=== PATIENT | female | born 1940 | race Caucasian/White ===

== ENCOUNTER 2020-10-02 09:49 | Outpatient (RCR) | payer MEDICARE, SELFPAY ==
[2016-11-09 17:21] VITALS: BMI 18.4
== END 2020-10-02 23:59 ==
LOC: IMMUN 09:49
PROVIDERS: PCP Orthopaedic Surgery; Visit Provider Family Medicine
DX: Z23 Encounter for immunization (principal)
CPT/HCPCS: 0011A; 0012A

== ENCOUNTER 2022-03-18 17:34 | Observation (INO) | payer MEDICARE, SELFPAY ==
[2022-03-18] VITALS (8 sets, daily range): BP systolic 110–179; BP diastolic 84–100; PULSE 68–87; RESP 16–19; TEMP 36.6–37.1; O2SAT 95–99; BMI 18.8; BMI 14.8
--- NOTE | 2022-03-18 17:39 | ED.RN ---
NO STROKE TEAM CALLED PER
--- NOTE | 2022-03-18 18:13 | CT_ITS ---
INDICATION: paresthesias/weakness. Complaints of RIGHT arm and hand numbness. RIGHT leg feels sluggish. EXAMINATION: CTA HEAD - CTA Head and Neck W/ Contrast Injection (and W/O Contrast Images if performed) TECHNIQUE: [place]/head CT angiogram and CTA examination of the neck was performed following IV contrast. 3D reconstructions were reviewed. A radiation dose optimization technique was used for this scan. Additional precontrast imaging of the head obtained. IV Contrast dosage and agent: 100 mL Isovue-370 Radiation Dose (provided by facility) CTDIvol (24.3 ) mGy, DLP ( 1186.57) mGy-cm COMPARISON: None. FINDINGS: CT HEAD: 1. The cerebral parenchyma, ventricular system and gyral pattern have normal configuration. Minimal involutional changes. Mild chronic microvascular deep white matter disease is noted. 2. There is focal area of diminished density in in the LEFT thalamus of indeterminate age however no hemorrhage noted. 3. Normal blackwell-white differentiation throughout the hemispheric parenchyma. No mass, hemorrhage, or acute territorial infarct identified. 4. Cerebellum, brainstem, basilar and suprasellar cisterns have normal appearance. No Chiari malformation. 5. Scattered vascular calcifications without evidence of hyperdense vascular signs. 6. Orbits, paranasal sinuses have normal appearance. 7. Bony elements have normal appearance. CTA [place]: PETROUS AND CAVERNOUS CAROTID ARTERIES: Scattered vascular calcifications involving the cavernous carotid vessels bilaterally. No filling defects or occlusion. No aneurysmal dilatation. SUPRACLINOID CAROTID ARTERIES: Normal appearance the supraclinoid carotid vessels bilaterally, the visualized ophthalmic arteries have normal appearance. ANTERIOR CEREBRAL AND A- COMM: Normal appearance the proximal and distal segments of the anterior cerebral circulation bilaterally. MIDDLE CEREBRAL ARTERIES: Normal appearance the proximal and distal segments of the middle cerebral circulation bilaterally. Normal appearance of the M4 cortical distribution bilaterally. INTRACRANIAL VERTEBRAL ARTERIES AND BASILAR ARTERY: Normal appearance of the intracranial course of the vertebral arteries bilaterally, normal appearance of basilar artery to the level of the bifurcation. Dominant LEFT vertebral artery is noted. POSTERIOR CEREBRAL ARTERIES: Normal appearance proximal distal segments of posterior cerebral circulation bilaterally. origin of the RIGHT posterior cerebral artery. Developmentally atresia RIGHT P1. DURAL SINUSES: Normal, no filling defects noted CTA Neck: TECHNIQUE: CTA examination of the neck obtained with standard protocol including axial postcontrast imaging with additional planar and three-dimensional reconstructions. Aortic arch: [Normal appearance of the aortic arch and origin the great vessels.] Scattered vascular calcifications are present. Right carotid system: There is normal appearance RIGHT common carotid, RIGHT internal carotid arteries, and the bifurcation. Normal appearance of the external carotid circulation on the RIGHT. Minimal calcification RIGHT carotid bulb without stenosis occlusion or luminal irregularity. Left carotid system: There is normal appearance of the LEFT common carotid, LEFT internal carotid, and the bifurcation. There is normal appearance of the LEFT external carotid circulation minimal calcification at the LEFT carotid bulb. Vertebral arteries: There is normal appearance of the vertebral arteries bilaterally without focal stenosis or occlusion. Dominant LEFT vertebral artery is noted. Airway and soft tissues of the neck: There is normal appearance of the musculofascial planes of suprahyoid and infrahyoid neck. Normal appearance of the visualized airway. Normal appearance the visualized thyroid without masses or nodules noted. Cervical spine: Normal appearance of bony elements of the cervical spine. No focal stenosis or occlusion involving the cervical spinal canal. CHEST: Significant pleural-parenchymal scar at the lung apices. Mild subpleural cystic changes are also noted. There is a soft tissue nodule at the RIGHT lung apex (series 4: Image 91), measuring approximately 5.[address]/CTA Head AND Neck W/ Contrast IMPRESSION: 1. Mild involutional change, moderate chronic microvascular deep white matter disease noted. 2. Subtle area of diminished density in the LEFT thalamus consistent with an area of lacunar infarct of indeterminate age. This may represent a subacute to chronic nonhemorrhagic infarct. 3. No other evidence mass, hemorrhage, or acute territorial infarct. 4. CTA examination of the [place] documents scattered calcifications in the cavernous carotid vessels without stenosis occlusion or aneurysmal dilatation. No intracranial LVO noted. 5. Scattered calcifications at the carotid bulbs bilaterally without hemodynamic significant stenosis in the cervical carotid or vertebral circulation to the level of the skull base. 6. Extensive chronic appearing pleural-parenchymal scar and thickening at the lung apices however mildly angulated pulmonary nodule versus scar present in the RIGHT upper lobe. In the absence previous imaging for comparison, consider follow-up CT evaluation of the chest to define the full extent of pulmonary disease, and a follow-up as per the included pulmonary nodule recommendations. Reference recommendations for pulmonary nodule follow-up: Fleischner Report Guidelines 2017 Lamar et al, Radiology 2017: https://pubs.rsna.org/doi/pdf/10.1148/radiol.4241305781 Solitary nodule size: <6 mm low-risk patients: no follow-up needed high-risk patients: optional CT at 12 months (see specific scenarios below) Solitary nodule size: 6-8 mm low-risk patients: follow-up at 6-12 months, then consider further follow-up at 18-24 months high-risk patients: initial follow-up CT at 6-12 months and then at 18-24 months if no change Solitary nodule size: >8 mm either low or high-risk patients consider follow-up CT at 3 months, and/or CT-PET, and/or biopsy Electronically Signed: Miky Marquez MD at 20:25 EDT ,
--- NOTE | 2022-03-18 18:14 | EKG12_ITS ---
Test Reason : DYSRHYTHMIA Blood Pressure : / mmHG Vent. Rate : 075 BPM Atrial Rate : 075 BPM P-R Int : 166 ms QRS Dur : 084 ms QT Int : 390 ms P-R-T Axes : 059 032 045 degrees QTc Int : 435 ms Normal sinus rhythm Normal ECG Confirmed by JEFF JUAN, JEREMY ([id number]), newspaper editor managing JAH GOSS ([id number]) on 03/20/2022 9:45:17 AM Referred By: BB Confirmed By:JEREMY AGUILAR MD
--- NOTE | 2022-03-18 18:15 | EDS_ITS ---
HPI History of Present Illness Chief Complaint: Numb/Ting Informant: patient Onset/Context/Timing Onset: Days Current Severity: Mild Maximum Severity: Mild Narrative Narrative: Patient presents secondary to numbness and tingling in her right upper extremity and feeling that her right leg has been sluggish. Symptoms started several days ago. The upper and lower extremity symptoms seemed to start at the same time. She states she still able to ambulate without difficulty. She thought that her right upper extremity numbness and tingling was secondary to carpal tunnel, however she states it goes up the entire length of her arm. She denies history of stroke or TIA in the past. [facility] Medical History (Updated 03/18/22 @ 21:[address] Deborah Lagunas MD) Hypercholesteremia Home Medications sertraline 50 mg tablet 25 mg PO DAILY 11/09/16 [History Last Taken Unknown] Allergy/AdvReac Type Severity Reaction Status Date / Time No Known Allergies Allergy Verified 03/18/22 17:37 Social History Smoking Status: Former smoker ROS ROS ED Constitutional Constitutional ED: Denies chills or fever(s) Eyes Eyes: Denies change in vision or discharge from eye(s) ENT ENT ED: Denies discharge from eye(s), rhinorrhea or sore throat Cardiovascular Cardiovascular: Denies chest pain or palpitations Respiratory/Chest Respiratory/Chest: Denies cough or dyspnea Gastrointestinal Gastrointestinal: Denies abdominal pain, diarrhea, nausea or vomiting Genitourinary Genitourinary ED: Denies difficulty urinating or dysuria Musculoskeletal Musculoskeletal: Denies back pain or extremity pain Integumentary Denies Abrasions or rash Neurologic Neurologic: Reports paresthesias and weakness; Denies headache(s) Psychiatric Psychiatric: Denies anxiety or depression Allergic/Immunologic Allergic/Immunologic ED: Denies lip swelling or urticaria EXAM Physical Exam Const Vital Signs: 03/18/22 17:35 03/18/22 18:04 Temperature 97.8 F Temperature Source Temporal Pulse Rate 84 76 Respiratory Rate 16 19 H Blood Pressure 110/100 H 150/88 H Blood Pressure Mean 103 108 Pulse Ox 96 98 Oxygen Delivery Method Room Air Room Air Positive well nourished and well developed General Appearance ED: well developed HEENT Reports normocephalic and head/scalp atraumatic Eyes PERRL and EOMs intact bilaterally Neck supple Chest Wall inspection of chest normal and palpation of chest normal Resp normal respiratory effort and clear to auscultation bilaterally Cardio regular rate and regular rhythm GI normal to inspection, nondistended, normoactive bowel sounds Palpation: soft Back/Spine no CVA tenderness Extremity normal to inspection Neuro oriented x3 and no sensory deficits noted Neuro Narrative: NIH equals 0 at the time of my exam. Sensorium / Orientation: alert Motor Exam: strength 5/5 throughout Psych mental status grossly normal Skin no rashes or lesions noted MDM MDM MDM Narrative Medical decision making narrative: With patient having both right upper and lower extremity symptoms stroke work-up is initiated. EKG, lab work, CTA of the head and neck obtained. Onset of symptoms was couple days ago and therefore not a candidate for tPA or stroke alert. Lab Data Attestation: I reviewed the patient's lab results. Labs: Laboratory Results - last 24 hr 03/18/22 03/18/22 17:45 17:45 WBC 6.4 RBC 4.41 Hgb 13.6 Hct 42.1 MCV 95.5 MCH 30.8 MCHC 32.3 RDW Std Deviation 46.3 H RDW Coeff of [place] 13.2 Plt Count 344 MPV 10.4 Immature Gran % (Auto) 0.200 Neut % (Auto) 69.8 Lymph % (Auto) 17.2 L [place] % (Auto) 6.1 Eos % (Auto) 5.6 H Baso % (Auto) 1.1 H Absolute Neuts (auto) 4.5 Absolute Lymphs (auto) 1.10 Nucleated RBC % 0 Sodium 139 Potassium 4.1 Chloride 107 Carbon Dioxide 27.0 Anion Gap 5 BUN 25 H Creatinine 0.94 Estim Creat Clear Calc 37.99 Est GFR (MDRD) Af Amer 73 Est GFR (MDRD) Non-Af 60 BUN/Creatinine Ratio 26.6 H Glucose 128 H Calcium 9.5 Radiography Diagnostic Testing: Clinical Impression(s) from Imaging Studies Head/Neck CTA 03/18/22 18:13 IMPRESSION: 1. Mild involutional change, moderate chronic microvascular deep white matter disease noted. 2. Subtle area of diminished density in the LEFT thalamus consistent with an area of lacunar infarct of indeterminate age. This may represent a subacute to chronic nonhemorrhagic infarct. 3. No other evidence mass, hemorrhage, or acute territorial infarct. 4. CTA examination of the [place] documents scattered calcifications in the cavernous carotid vessels without stenosis occlusion or aneurysmal dilatation. No intracranial LVO noted. 5. Scattered calcifications at the carotid bulbs bilaterally without hemodynamic significant stenosis in the cervical carotid or vertebral circulation to the level of the skull base. 6. Extensive chronic appearing pleural-parenchymal scar and thickening at the lung apices however mildly angulated pulmonary nodule versus scar present in the RIGHT upper lobe. In the absence previous imaging for comparison, consider follow-up CT evaluation of the chest to define the full extent of pulmonary disease, and a follow-up as per the included pulmonary nodule recommendations. Reference recommendations for pulmonary nodule follow-up: Fleischner Report Guidelines 2017 MacAniahopedro et al, Radiology 2017: https://pubs.rsna.org/doi/pdf/10.1148/radiol.1139297795 Solitary nodule size: <6 mm low-risk patients: no follow-up needed high-risk patients: optional CT at 12 months (see specific scenarios below) Solitary nodule size: 6-8 mm low-risk patients: follow-up at 6-12 months, then consider further follow-up at 18-24 months high-risk patients: initial follow-up CT at 6-12 months and then at 18-24 months if no change Solitary nodule size: >8 mm either low or high-risk patients consider follow-up CT at 3 months, and/or CT-PET, and/or biopsy Electronically Signed: Miyk Marquez MD at 20:25 EDT , EKG Initial EKG: Attestation: I personally reviewed and interpreted this EKG as follows: Interpretation: Sinus Rhythm (Sinus at 75 with no acute ischemia.) Treatment and Re-Evaluation Narrative: Lab work is unremarkable. EKG reveals no acute ischemia. CTA of the head and neck reveals an area of diminished density in the left thalamus consistent with an area of lacunar infarct of indeterminate age. This may represent a subacute or chronic nonhemorrhagic infarct. With patient having left-sided findings on her CT and right arm and leg symptoms I am concerned that this is a subacute injury. I feel patient should be admitted for the remainder of the stroke work- up. I will speak with the hospitalist. Discharge Plan Triage Chief Complaint: Numb/Ting ED Provider: Deborah Lagunas Dx/Rx/DC Orders Clinical Impression: CVA (cerebral vascular accident) Prescriptions: No Action sertraline 50 MG tablet 25 mg PO DAILY Primary Care Provider: Reggie Linton Referrals: Reggie Linton MD [Primary Care Provider] - Disposition Disposition: Acute Care Hospital [facility]
[2022-03-18 18:28] LABS: Absolute Neutrophil Count 4.5 X10^3/uL (2.0-7.7); Basophil# 0.07 X10^3/uL; Basophil% 1.1 % (0-1); Eosinophil# 0.36 X10^3/uL; Eosinophils% 5.6 % (0-5); Hematocrit 42.1 % (37-47); Hemoglobin 13.6 g/dL (12.0-15.0); Lymphocyte % 17.2 % (19-41); Mean Corp Hgb Conc 32.3 g/dL (32-36); Mean Corpuscular Hgb 30.8 pg (27.0-32.0); Mean Corpuscular Volume 95.5 fL (81-99); Mean Platelet Vol. 10.4 fl (6.2-12.0); Monocyte# 0.39 X10^3/uL; Monocyte% 6.1 % (0-10); NRBC Flagged by Analyzer 0 % (0-5); Neutrophil # 4.45 X10^3/uL (2.7-7.7); Neutrophil % 69.8 % (47-70); Platelet Count 344 K/mm3 (150-450); RBC Distribution Width CV 13.2 % (11.6-14.6); RBC Distribution Width SD 46.3 fl (35.1-43.9); Red Blood Count 4.41 M/mm3 (4.2-5.4); White Blood Count 6.4 K/mm3 (4.4-11.0)
[2022-03-18 18:54] LABS: Anion Gap 5 (5-15); BUN 25 mg/dL (7-18); BUN/Creat Ratio 26.6 RATIO (10-20); Calcium,Total 9.5 mg/dL (8.5-10.1); Chloride 107 mmol/L (98-107); Creatinine, Serum 0.94 mg/dL (0.55-1.02); EST Glomerular Filtration Rate 60 mL/min (>60); Est Glom Filt Rate - Afr Amer 73 mL/min (>60); Estimated Creatinine Clearance 37.99 ml/min; Glucose 128 mg/dL (74-106); Potassium 4.1 mmol/L (3.5-5.1); Sodium Level 139 mmol/L (136-145)
[2022-03-18] MEDS: hydrALAZINE 20 MG/ML Vial 5 MG IV (22:09)
--- NOTE | 2022-03-18 22:14 | PCM.HP.STD ---
HPI - General General Date of Admission: 03/18/22 Date of Service: 03/18/22 Chief Complaint: stroke-like symptoms HPI Narrative SHANELLE THURSTON, is a 81 F with a significant history of depression/anxiety; and hypercholesteremia who presents to the emergency department with numbness of her right forearm and her right hand. Also she had weakness of her right hand. Associated with her symptoms is malaise. Her symptoms started a couple of days ago. At least she thinks her symptoms started a day before presentation. Her symptoms has improved. [facility] Medical History Hypercholesteremia Home Medications sertraline 50 mg tablet (Zoloft) 25 mg PO DAILY 11/09/16 [History Last Taken Unknown] Allergy/AdvReac Type Severity Reaction Status Date / Time No Known Allergies Allergy Verified 03/18/22 17:37 Family History Other COPD (chronic obstructive pulmonary disease) Surgical History H/O tubal ligation Social History Smoking Status: Former smoker ROS ROS Narrative Pertinent positives and pertinent negatives as noted in HPI. All other systems were reviewed and are negative. Vital Signs Vital Signs Vital Signs: 03/18/22 17:35 03/18/22 18:04 03/18/22 21:00 Temperature 97.8 F Temperature Source Temporal Pulse Rate 84 76 87 Respiratory Rate 16 19 H 18 Blood Pressure 110/100 H 150/88 H 179/89 H Blood Pressure Mean 103 108 119 Pulse Ox 96 98 97 Oxygen Delivery Method Room Air Room Air Room Air 03/18/22 22:03 03/18/22 22:00 Temperature 98.0 F Temperature Source Temporal Pulse Rate 68 73 Respiratory Rate 18 18 Blood Pressure 171/93 H 171/93 H Blood Pressure Mean 119 119 Pulse Ox 95 95 Oxygen Delivery Method Room Air Room Air Weight Weight: 53.07 kg Body Mass Index (BMI) 18.8 Physical Exam Narrative Physical exam: General: Cachectic Head: Normocephalic, atraumatic, no tenderness Eyes: Vision is grossly intact. EOMI ENT, no trauma, moist mucous membranes, no rhinorrhea Neck: Nontender, full range of motion, no spinal tenderness, deformities, step-off CVS: Regular rate and rhythm. S1-S2 present. No murmur, gallop or rub. Respiratory : clear to auscultation bilaterally, chest wall nontender, no wheezing Abdomen: Soft, nontender, nondistended, normal bowel sounds, no masses : Deferred Back: Kyphosis and scoliosis. Extremities: Ulnar deviation of toes. No edema Skin: Normal color, no trauma, abrasions Neuro: Alert, oriented, cranial nerves II through XII grossly intact. Flattening of left nasolabial fold. Monocular left nasal Hemianopia. Psychiatry: Normal mood. Normal affect. Not depressed. Not anxious. Results Medical Records Data Attestation: I reviewed the patient's medical records Lab / Micro Data Attestation: I reviewed the patient's lab results. Result Diagrams: 03/18/22 17:45 03/18/22 17:45 Labs: Laboratory Results - last 24 hr 03/18/22 17:45: WBC 6.4, RBC 4.41, Hgb 13.6, Hct 42.1, MCV 95.5, MCH 30.8, MCHC 32.3, RDW Std Deviation 46.3 H, RDW Coeff of [place] 13.2, Plt Count 344, MPV 10.4, Immature Gran % (Auto) 0.200, Neut % (Auto) 69.8, Lymph % (Auto) 17.2 L, [place] % (Auto) 6.1, Eos % (Auto) 5.6 H, Baso % (Auto) 1.1 H, Absolute Neuts (auto) 4.5, Absolute Lymphs (auto) 1.10, Nucleated RBC % 0 03/18/22 17:45: Sodium 139, Potassium 4.1, Chloride 107, Carbon Dioxide 27.0, Anion Gap 5, BUN 25 H, Creatinine 0.94, Estim Creat Clear Calc 37.99, Est GFR (MDRD) Af Amer 73, Est GFR (MDRD) Non-Af 60, BUN/Creatinine Ratio 26.6 H, Glucose 128 H, Calcium 9.5 Radiology Impression Head/Neck CTA 03/18/22 18:13 IMPRESSION: 1. Mild involutional change, moderate chronic microvascular deep white matter disease noted. 2. Subtle area of diminished density in the LEFT thalamus consistent with an area of lacunar infarct of indeterminate age. This may represent a subacute to chronic nonhemorrhagic infarct. 3. No other evidence mass, hemorrhage, or acute territorial infarct. 4. CTA examination of the [place] documents scattered calcifications in the cavernous carotid vessels without stenosis occlusion or aneurysmal dilatation. No intracranial LVO noted. 5. Scattered calcifications at the carotid bulbs bilaterally without hemodynamic significant stenosis in the cervical carotid or vertebral circulation to the level of the skull base. 6. Extensive chronic appearing pleural-parenchymal scar and thickening at the lung apices however mildly angulated pulmonary nodule versus scar present in the RIGHT upper lobe. In the absence previous imaging for comparison, consider follow-up CT evaluation of the chest to define the full extent of pulmonary disease, and a follow-up as per the included pulmonary nodule recommendations. Reference recommendations for pulmonary nodule follow-up: Fleischner Report Guidelines 2017 MacMahon et al, Radiology 2017: https://pubs.rsna.org/doi/pdf/10.1148/radiol.4658540737 Solitary nodule size: <6 mm low-risk patients: no follow-up needed high-risk patients: optional CT at 12 months (see specific scenarios below) Solitary nodule size: 6-8 mm low-risk patients: follow-up at 6-12 months, then consider further follow-up at 18-24 months high-risk patients: initial follow-up CT at 6-12 months and then at 18-24 months if no change Solitary nodule size: >8 mm either low or high-risk patients consider follow-up CT at 3 months, and/or CT-PET, and/or biopsy Electronically Signed: Miky Marquez MD at 20:25 EDT , Assessment & Plan Assessment/Plan (1) CVA (cerebral vascular accident): PLAN: Plan Strokelike symptoms Serial NINDS NIH Scale ordered Head and neck CTA was visualized and independently interpreted. I agree with radiologist interpretation of left thalamus consistent with an area of lacunar infarct of indeterminate age. Subacute versus chronic nonhemorrhagic infarct. Upon my personal head CT image review: I agree with radiologist interpretation Lipid profile and A1c ordered. Physical therapy, and occupational therapy. N.p.o. until bedside swallow eval. Daily aspirin. High intensity statin Outside window of permissive hypertension. MRI brain ordered Echocardiogram ordered. Pleural?parenchymal scar versus angulated pulmonary nodule As seen on head and neck CTA. Patient to follow-up longitudinally. Hypertension Highest documented systolic blood pressure of 179. Not on home medications. PRN Hydralazine IV given at the emergency department. As needed IV hydralazine continued. Trend blood pressures. Depression/anxiety Stable Severe protein Calorie Ensure Enlive ordered. Dietitian consult. DVT prophylaxis: Subcutaneous Lovenox. Charges/Coding Visit Charges OBSV E&M: 94811 Initial observation care L3
--- NOTE | 2022-03-18 22:53 | ECHOD_ITS ---
Reason For Study: TIA/CVA Procedure This was a 2D Doppler, Color Flow transthoracic echocardiogram. The exam was of adequate technical quality. Exam performed portable in patient room. Left Ventricle Normal LV size. Sigmoid septum. Mid cavitary false tendon noted. Left ventricular systolic function is normal. The estimated ejection fraction is 65 %. No evidence for diastolic dysfunction. No regional wall motion abnormalities noted. Right Ventricle Normal RV size. Normal systolic function. Atria Normal left atrium. Normal right atrium. Prominent eustachian valve. No doppler evidence for ASD. Bubble contrast study negative for right to left interatrial shunt. Mitral Valve There is mild mitral annular calcification. Extension of the mitral annular calcification onto the base of the posterior mitral valve leaflet. Mild focal mitral valve calcification of the anterior leaflet. The mitral valve chordae are thickened and/or calcified. Trivial mitral valve insufficiency. Tricuspid Valve Normal tricuspid valve. Trivial tricuspid valve insufficiency. Right ventricular systolic pressure estimated to be 20 mmHg. Aortic Valve Trisinus/trileaflet aortic valve. Moderate focal aortic valve calcification. Aortic sclerosis, no stenosis. Pulmonic Valve The pulmonic valve is not well visualized. Trivial pulmonic valve insufficiency. Great Vessels Normal sized aortic root. Pericardium/Pleural No pericardial effusion. Medication Performed a rapid injection of agitated mix of 9 cc saline and 1cc air to assess for atrial septal defect. MMode/2D Measurements & Calculations LVIDd: 2.7 cm IVSd: 1.2 cm LVOT diam: 1.9 cm LVIDs: 1.3 cm LVPWd: 0.96 cm RVDd: 3.4 cm FS: 50.2 % LVOT area: 2.7 cm2 Ao root diam: 3.0 cm LAV(MOD-bp): 26.0 ml LVAd ap4: 17.9 cm2 LAV(MOD-bp) Indexed: 18.2 ml/m2 LVLd ap4: 6.6 cm LAV(MOD-sp2): 23.3 ml EDV(MOD-sp4): 38.8 ml LAV(MOD-sp4): 21.6 ml EDV(sp4-el): 41.1 ml LVAs ap4: 8.4 cm2 LVLs ap4: 6.1 cm ESV(MOD-sp4): 9.7 ml ESV(sp4-el): 9.9 ml EF(MOD-sp4): 75.0 % EF(sp4-el): 75.9 % SV(MOD-sp4): 29.1 ml SV(sp4-el): 31.2 ml LA A4 area: 9.2 cm2 LA dimension(2D): 3.3 cm RA A4 area: 11.0 cm2 Time Measurements MV dec time: 0.37 sec Doppler Measurements & Calculations MV E max uriel: 70.1 cm/sec Lat Peak E' Uriel: 6.5 cm/sec Med Peak E' Uriel: 5.5 cm/sec MV A max uriel: 110.8 cm/sec E/E' lat: 10.7 E/E' med: 12.6 MV E/A: 0.63 MV dec slope: 188.4 cm/sec2 Ao V2 max: 154.2 cm/sec LV V1 max: 138.5 cm/sec Ao max P.5 mmHg LV V1 max P.7 mmHg Ao V2 mean: 115.1 cm/sec LV V1 mean P.0 mmHg Ao mean P.8 mmHg LV V1 mean: 106.7 cm/sec Ao V2 VTI: 37.7 cm LV V1 VTI: 32.8 cm SHANNON(I,D): 2.4 cm2 SHANNON(V,D): 2.4 cm2 SV(LVOT): 88.6 ml PA V2 max: 78.0 cm/sec TR max uriel: 205.0 cm/sec PA V2 mean: 54.3 cm/sec TR max P.9 mmHg ECHO/Echo Complete Interpretation Summary Left ventricular systolic function is normal. The estimated ejection fraction is 65 %. Sigmoid septum. Mid cavitary false tendon noted. Prominent eustachian valve. There is mild mitral annular calcification. Extension of the mitral annular calcification onto the base of the posterior mi tral valve leaflet. Mild focal mitral valve calcification of the anterior leaflet. The mitral valve chordae are thickened and/or calcified. Trivial mitral valve insufficiency. Trivial tricuspid valve insufficiency. Moderate focal aortic valve calcification. Aortic sclerosis, no stenosis. Trivial pulmonic valve insufficiency. Right ventricular systolic pressure estimated to be 20 mmHg. No evidence for diastolic dysfunction. Bubble contrast study negative for right to left interatrial shunt. Ordering Physician: Kamlesh Diggs Referring Physician: Reggie Linton Performed By: Ginger Solis RDCS
[2022-03-19] VITALS (12 sets, daily range): BP systolic 86–156; BP diastolic 63–93; PULSE 69–88; RESP 16–20; TEMP 36.2–36.9; O2SAT 95–97; BMI 14.8
[2022-03-19 05:41] LABS: Absolute Lymphocyte Count 1.18 X10^3/uL (0.83-4.51); Absolute Neutrophil Count 3.8 X10^3/uL (2.0-7.7); Basophil# 0.08 X10^3/uL; Basophil% 1.3 % (0-1); Eosinophil# 0.53 X10^3/uL; Eosinophils% 8.7 % (0-5); Lymphocyte # 1.18 X10^3/ul (0.83-4.51); Lymphocyte % 19.3 % (19-41); Mean Corp Hgb Conc 33.3 g/dL (32-36); Mean Corpuscular Hgb 31.1 pg (27.0-32.0); Mean Corpuscular Volume 93.3 fL (81-99); Mean Platelet Vol. 9.9 fl (6.2-12.0); Monocyte# 0.49 X10^3/uL; NRBC Flagged by Analyzer 0 % (0-5); Neutrophil # 3.82 X10^3/uL (2.7-7.7); Neutrophil % 62.5 % (47-70); Platelet Count 306 K/mm3 (150-450); RBC Distribution Width CV 13.2 % (11.6-14.6); RBC Distribution Width SD 44.6 fl (35.1-43.9); Red Blood Count 3.86 M/mm3 (4.2-5.4); White Blood Count 6.1 K/mm3 (4.4-11.0)
[2022-03-19] MEDS: 0.9% Saline Lock 10 ML Syringe IV (06:06)
[2022-03-19 06:23] LABS: Anion Gap 7 (5-15); BUN 16 mg/dL (7-18); BUN/Creat Ratio 22.8 RATIO (10-20); Calcium,Total 8.7 mg/dL (8.5-10.1); Chloride 107 mmol/L (98-107); Cholesterol 198 mg/dL (200); EST Glomerular Filtration Rate 85 mL/min (>60); Est Glom Filt Rate - Afr Amer 102 mL/min (>60); Estimated Creatinine Clearance 27.93 ml/min; Glucose 90 mg/dL (74-106); High Density Lipoprotein 38 mg/dL; Potassium 3.7 mmol/L (3.5-5.1); Sodium Level 139 mmol/L (136-145); Triglycerides 125 mg/dL
[2022-03-19 06:24] LABS: Very Low Density Lipoprotein 25 mg/dL (5-40)
[2022-03-19 07:50] LABS: Hemoglobin A1c 5.3 % (3.8-5.6)
--- NOTE | 2022-03-19 10:44 | TELEMED_ITS ---
SOC Telemed has confirmed receipt of a request for visit. This document confirms receipt of the order initiating the consult. To find the results of the consultation, please view the patient's reports for the scanned Telemed Consult.
[2022-03-19] MEDS: Sertraline 50 MG Tablet 25 MG PO (11:03)
[2022-03-19] MEDS: Aspirin 81 MG TAB.CHEW PO (11:04)
[2022-03-19] MEDS: Enoxaparin 40 MG/0.4 ML Syringe SC (11:04)
--- NOTE | 2022-03-19 11:45 | CASEMGMT ---
RN NOE Face to Face with patient for initial transition planning/care coordination assessment. RN CM introduced self and role at [facility]. Patient sitting in chair, alert and oriented. Patient willing to participate in assessment and is able to answer all questions appropriately. Care providers, pharmacy, and demographics verified. Patient wishes to discharge home, denies need for home health at this time. Patient states he has no further needs or concerns at this time. CM to follow for discharge planning needs that may arise. PCP: Raghavendra Specialists: none Preferred Pharmacy: [facility] Insurance: [employer] [facility] Prescription Benefit: yes Living Will/HPOA: yes, daughter Jenni Toth, HPOA LNOK: daughter Living Arrangements: Patient lives with daughter in a 2 story home with bed and bath on first floor. No steps to enter the home. Patient states she is independent at home. Transportation: daughter DME/HHC: Patient denies DME or previous HHC Disposition Plan: Patient to discharge home with family support and follow-up plans in place. Lauryn BACON, RN, CM
--- NOTE | 2022-03-19 14:30 | PN.HOSP_ITS ---
Subjective Subjective Follow-up on Acute CVA: Patient seen and examined. She complains of numbness in the right upper extremity. She denied any new complaints. MRI of the brain is positive for 2 small SCHOOL LABORATORY TECHNICIAN territory left acute infarcts in the left thalamic lobe and left cerebellar lobe. Objective Data Objective Data Vital Signs: Vital Signs Temp Pulse Resp BP Pulse Ox O2 Del Method 97.1 F L 80 18 106/70 95 Room Air 03/19/22 14:16 03/19/22 14:16 03/19/22 14:16 03/19/22 14:16 03/19/22 14:16 03/19/22 14:16 Oxygen Delivery Method Room Air Weight: 41.5 kg Body Mass Index (BMI) 14.8 Intake & Output: Intake and Output for Last 24 Hours 03/17/22 03/18/22 03/19/22 23:59 23:59 23:59 Intake Total 250 / 250 Balance 250 / 250 Lab / Micro Data Result Diagrams: 03/19/22 04:52 03/19/22 04:52 Labs: Laboratory Results - last 24 hr 03/18/22 17:45: WBC 6.4, RBC 4.41, Hgb 13.6, Hct 42.1, MCV 95.5, MCH 30.8, MCHC 32.3, RDW Std Deviation 46.3 H, RDW Coeff of [place] 13.2, Plt Count 344, MPV 10.4, Immature Gran % (Auto) 0.200, Neut % (Auto) 69.8, Lymph % (Auto) 17.2 L, [place] % (Auto) 6.1, Eos % (Auto) 5.6 H, Baso % (Auto) 1.1 H, Absolute Neuts (auto) 4.5, Absolute Lymphs (auto) 1.10, Nucleated RBC % 0 03/18/22 17:45: Sodium 139, Potassium 4.1, Chloride 107, Carbon Dioxide 27.0, Anion Gap 5, BUN 25 H, Creatinine 0.94, Estim Creat Clear Calc 37.99, Est GFR (MDRD) Af Amer 73, Est GFR (MDRD) Non-Af 60, BUN/Creatinine Ratio 26.6 H, Glucose 128 H, Calcium 9.5 03/19/22 04:52: WBC 6.1, RBC 3.86 L, Hgb 12.0, Hct 36.0 L, MCV 93.3, MCH 31.1, MCHC 33.3, RDW Std Deviation 44.6 H, RDW Coeff of [place] 13.2, Plt Count 306, MPV 9.9, Immature Gran % (Auto) 0.200, Neut % (Auto) 62.5, Lymph % (Auto) 19.3, [place] % (Auto) 8.0, Eos % (Auto) 8.7 H, Baso % (Auto) 1.3 H, Absolute Neuts (auto) 3.8, Absolute Lymphs (auto) 1.18, Nucleated RBC % 0 03/19/22 04:52: Sodium 139, Potassium 3.7, Chloride 107, Carbon Dioxide 25.0, Anion Gap 7, BUN 16, Creatinine 0.70, Estim Creat Clear Calc 27.93, Est GFR (MDRD) Af Amer 102, Est GFR (MDRD) Non-Af 85, BUN/Creatinine Ratio 22.8 H, Glucose 90, Calcium 8.7, Triglycerides 125, Cholesterol 198, LDL Cholesterol 135 H, VLDL Cholesterol 25, HDL Cholesterol 38 L 03/19/22 04:52: Hemoglobin A1c 5.3 Radiography Diagnostic Testing: Radiology Impression Head/Neck CTA 03/18/22 18:13 IMPRESSION: 1. Mild involutional change, moderate chronic microvascular deep white matter disease noted. 2. Subtle area of diminished density in the LEFT thalamus consistent with an area of lacunar infarct of indeterminate age. This may represent a subacute to chronic nonhemorrhagic infarct. 3. No other evidence mass, hemorrhage, or acute territorial infarct. 4. CTA examination of the [place] of [place] documents scattered calcifications in the cavernous carotid vessels without stenosis occlusion or aneurysmal dilatation. No intracranial LVO noted. 5. Scattered calcifications at the carotid bulbs bilaterally without hemodynamic significant stenosis in the cervical carotid or vertebral circulation to the level of the skull base. 6. Extensive chronic appearing pleural-parenchymal scar and thickening at the lung apices however mildly angulated pulmonary nodule versus scar present in the RIGHT upper lobe. In the absence previous imaging for comparison, consider follow-up CT evaluation of the chest to define the full extent of pulmonary disease, and a follow-up as per the included pulmonary nodule recommendations. Reference recommendations for pulmonary nodule follow-up: Fleischner Report Guidelines 2017 MacMahon et al, Radiology 2017: https://pubs.rsna.org/doi/pdf/10.1148/radiol.2382705628 Solitary nodule size: <6 mm low-risk patients: no follow-up needed high-risk patients: optional CT at 12 months (see specific scenarios below) Solitary nodule size: 6-8 mm low-risk patients: follow-up at 6-12 months, then consider further follow-up at 18-24 months high-risk patients: initial follow-up CT at 6-12 months and then at 18-24 months if no change Solitary nodule size: >8 mm either low or high-risk patients consider follow-up CT at 3 months, and/or CT-PET, and/or biopsy Electronically Signed: Miky Marquez MD at 20:25 EDT , Echocardiogram 03/18/22 22:53 Interpretation Summary Left ventricular systolic function is normal. The estimated ejection fraction is 65 %. Sigmoid septum. Mid cavitary false tendon noted. Prominent eustachian valve. There is mild mitral annular calcification. Extension of the mitral annular calcification onto the base of the posterior mitral valve leaflet. Mild focal mitral valve calcification of the anterior leaflet. The mitral valve chordae are thickened and/or calcified. Trivial mitral valve insufficiency. Trivial tricuspid valve insufficiency. Moderate focal aortic valve calcification. Aortic sclerosis, no stenosis. Trivial pulmonic valve insufficiency. Right ventricular systolic pressure estimated to be 20 mmHg. No evidence for diastolic dysfunction. Bubble contrast study negative for right to left interatrial shunt. Ordering Physician: Kamlesh Diggs Referring Physician: Reggie Linton Performed By: Ginger Solis, RORY Brain MRI 03/19/22 14:30 IMPRESSION: 2 small SCHOOL LABORATORY TECHNICIAN territorial left acute infarcts 1. Small acute infarct in the left thalamic lobe 2. Small acute infarct in the left cerebellar lobe Electronically Signed: Josiah Mosqueda MD at 10:29 EDT , ADDENDUM: 03/19/22 1056 IMPRESSION: 2 small SCHOOL LABORATORY TECHNICIAN territorial left acute infarcts 1. Small acute infarct in the left thalamic lobe 2. Small acute infarct in the left cerebellar lobe N.B. : The above Results were Read Back by Josiah Mosqueda MD to Brigida Buck OT, and understanding confirmed on 03/19/2022 10:49:14 (ET). Electronically Signed: Josiah Mosqueda MD at 10:29 EDT , Physical Exam Narrative Physical exam: General: Alert, Oriented x3, Cooperative, No apparent distress HEENT: Atraumatic Oral: Moist Mucosa Neck: Supple Lungs: Clear to auscultation Cardiovascular: HS I+II, regular, no murmurs Abdomen: Bowel Sounds Present, Soft, Non Tender Extremities: No edema Skin: No rashes, No breakdown Neurological: Grossly intact Psych/Mental Status: Appropriate Assessment & Plan Assessment/Plan (1) CVA (cerebral vascular accident): PLAN: Plan 1. Acute SCHOOL LABORATORY TECHNICIAN - cerebellar and thalamic CVA Brain MRI showed 2 small SCHOOL LABORATORY TECHNICIAN territory acute infarct in the left thalamic lobe and cerebellar lobes CTA of the head and neck showed a focal area of diminished density in the left thalamus of indeterminate age 2D echo shows EF of 65%, sigmoid septum, moderate focal aortic calcification, negative bubble study. Continue on aspirin, statin. PT/OT/ST evaluations Teleneurology consult 2. Anxiety/depression, continue on Zoloft 3. Severe protein calorie malnutrition, dietitian consulted, continue supplement 4. DVT prophylaxis?Lovenox subcu Charges/Coding Visit Charges Inpatient E&M: 75463 Subs Hosp L2
--- NOTE | 2022-03-19 14:30 | MRI_ITS ---
We are attempting to reach an attending provider to discuss findings. An addendum with communication details will be sent when the communication is complete. STUDY: MRI BRAIN WITHOUT CONTRAST REASON FOR EXAM: Female, 81 years old. cva TECHNIQUE: Standardized multiplanar fat and water weighted pulse sequences were obtained. COMPARISON: CTA of the brain dated March 18, 2022 FINDINGS: A single small acute infarct is present in the posterior inferior aspect of the left cerebellar lobe, with a second small acute infarct in the posterior aspect of the left thalamic lobe. No additional acute infarcts are present. There is mild cerebral atrophy with widening of the extra-axial spaces and ventricular dilatation. There are a limited number of small white matter hyperintensities, distributed throughout the deep white matter tracts of the cerebral hemispheres, consistent with mild chronic white matter ischemic changes. Petechial hemosiderin microvascular staining is present in bilateral cerebral hemispheres. This does not represent macroscopic or acute hemorrhage. Normal bilateral basal ganglia. Normal thalami. There is no extra-axial fluid accumulation. Normal flow voids within the major intracranial circulation suggesting patency by spin echo criteria. Normal sella turcica, pituitary gland, infundibular stalk, optic chiasm and hypothalamus. Normal tectal plate and pineal gland. Normal midbrain, klarissa and medulla. Normal cerebellum. Normal basal cisterns. Normal bilateral temporal bones. Normal bilateral internal auditory canals. No demonstrated orbital abnormality, within the constraints of a routine brain study. Normal visualized paranasal sinuses. Normal calvarium and skull base. Normal visualized soft tissue structures. Normal visualized upper cervical spine. MRI/Brain without Contrast IMPRESSION: 2 small CONTAINER COORDINATOR territorial left acute infarcts 1. Small acute infarct in the left thalamic lobe 2. Small acute infarct in the left cerebellar lobe Electronically Signed: Josiah Mosqueda MD at 10:29 EDT ,
--- NOTE | 2022-03-19 15:33 | CASEMGMT ---
Social Work Pt admitted with stroke. SW met with pt and completed PHQ9 depression screen. Pt with score of 3/27 indicating mild depression. Pt denies any on going depressive feelings and states she has seen a counselor a very long time ago. Pt educated on coorelation between stroke and depression. Pt accepting of list of area counseling services. Pt with no other concerns at this time. KIMI Mason
--- NOTE | 2022-03-19 15:35 | CASEMGMT ---
Addendum entered by Steffanie Garay 03/19/22 15:52: SW placed call to pt dgt Jenni. Jenni to call NELLY garcia and leave VM with Crissy's contact information. KIMI Mason Original Note: Social Work SW met with pt to inquire about advance directives. Pt states she does not believe she has completed these documents. SW educated pt on HCPOA and Living Will. Pt requesting to complete these documents. SW assisted pt in completing documents. Pt naming her daughter Chelsea Toth as primary HCPOA and daughter Crissy Egan as secondary. Pt does not know Crissy's phone number or address. SW informed pt that SW will contact Chelsea to get address for Crissy and will return tomorrow to complete documents. Pt agreeable. KIMI Mason
[2022-03-19] MEDS: Atorvastatin Calcium 40 MG Tablet PO (21:44)
[2022-03-20 01:31] VITALS: BP 131/61; PULSE 70; RESP 16; TEMP 36.3; O2SAT 95
[2022-03-20 03:00] VITALS: PULSE 64
[2022-03-20 05:30] VITALS: BP 126/71; PULSE 65; RESP 16; TEMP 36.6; O2SAT 95
[2022-03-20 07:01] VITALS: PULSE 58
[2022-03-20 07:21] VITALS: O2SAT 93
--- NOTE | 2022-03-20 08:08 | DCINST_ITS ---
Discharge Instructions Diet Discharge Diet: Low fat / Low cholesterol and 2000 mg Sodium Diet Activity Discharge Activity: Return to Normal Activity Follow Up Care Test Results: Test results from this visit will be discussed in further detail at your follow- up appointment, if applicable. Discharge Plan Admission Admit Date/Time: 03/19/22 12:05 Primary Reason for Your Visit: Acute CVA Attending Provider: Willow Richardson Primary Care Provider: Reggie Linton Consulting Providers: Kamlesh Diggs Instructions Additional Instructions / Restrictions: Take note of your new medications. Follow-up with neurology in the outpatient within 1 month Discharge Orders/Prescriptions Prescriptions: New atorvastatin 40 mg Tablet 40 mg PO QHS 30 Days Qty: 30 0RF aspirin 81 mg Tablet,Chewable 81 mg PO BREAKFAST 30 Days Qty: 30 0RF Continued sertraline [Zoloft] 50 MG tablet 25 mg PO DAILY Other Ambulatory Orders: 30 Day Event Recorder Preventi (Urgent) Location: None Selected Ordered By: Dr. Willow Richardson Referrals / Follow Up: Reggie Linton MD [Primary Care Provider] - Within 1 Week Tyron Marquis MD [Non-Staff] - Within 1 Month Disposition Disposition (needs filled in before D/C Order can be placed): Home, Self Care
[2022-03-20] MEDS: Sertraline 50 MG Tablet 25 MG PO (08:49)
[2022-03-20] MEDS: Enoxaparin 40 MG/0.4 ML Syringe SC (08:49)
[2022-03-20] MEDS: Aspirin 81 MG TAB.CHEW PO (08:49)
--- NOTE | 2022-03-20 08:53 | DS.PCM_ITS ---
Providers Date of Admission: 03/19/22 Date of Discharge: 03/20/22 Primary Care Physician: Dr. Reggie Linton MD Reason For Visit: STROKE-LIKE SYMPTOMS Diagnosis Discharge Diagnosis (1) CVA (cerebral vascular accident): Status: Acute Code(s): I63.9 - Cerebral infarction, unspecified Medications at Discharge Home Medications sertraline 50 mg tablet (Zoloft) 25 mg PO DAILY 11/09/16 aspirin 81 mg chewable tablet 81 mg PO BREAKFAST 30 days #30 tabs 03/20/22 atorvastatin 40 mg tablet 40 mg PO QHS 30 days #30 tabs 03/20/22 Hospital Course Operations None Procedures 2-D Echocardiogram Summary of Care Provided Minutes Spent on Discharge: 45 Hospital Course: 81-year-old female past medical history of anxiety/depression, hyperlipidemia who comes in with complaints of numbness and tingling in the right forearm as well as weakness. Patient stated that this started a couple of days ago. She lives with her daughter. In the ED, a CT of the head and neck showed a left thalamic lacunar infarct of indeterminate age. Patient was admitted to the progressive care unit and monitored at the stroke protocol. MRI of the brain showed 2 strokes in the left cerebellar and left thalamic region. These were acute. She was continued on aspirin and statin. Tele-neurology was consulted. 30-day event monitor was recommended at discharge. Patient will also follow-up with neurology as outpatient. Patient was seen by PT and OT and ST and no further recommendations were made. Physical Exam Narrative Physical exam: General: Alert, Oriented x3, Cooperative, No apparent distress HEENT: Atraumatic Oral: Moist Mucosa Neck: Supple Lungs: Clear to auscultation Cardiovascular: HS I+II, regular, no murmurs Abdomen: Bowel Sounds Present, Soft, Non Tender Extremities: No edema Skin: No rashes, No breakdown Neurological: Grossly intact except for numbness over right upper extremity Psych/Mental Status: Appropriate Medical Records Data Medical Nutrition Assessment Dietitian: Malnutrition Criteria Met Start: 03/19/22 15:24 Freq: Status: Active Protocol: Document 03/19/22 15:25 AG (Rec: 03/19/22 15:25 AG [id number]) Nutrition Malnutrition Evidence of Malnutrition Exists Yes Malnutrition (severe): Chronic Evidenced By Suboptimal Energy Intake ( Severe),Weight Loss (Severe), Physical Changes (Severe) Clinical Problem Chronic Disease or Condition Related Malnutrition Etiology severe, chronic malnutrition r /t inadequate energy intake Signs/Symptoms as evidenced by unintentional wt loss of 17.5#/16% x 6 months; estimated PO intake meeting <75% of estimated energy needs >3 months; severe muscle wasting/fat loss evident per physical exam in orbital, temporal, and clavicle areas; BMI 14.8 Status Active Problem Recommendation Dietitian Recommendations/Changes regular, no added salt diet given severe malnutrition; will continue ensure enlive 120mL 4x/day for additional calories/protein if consumed. Weight / BMI Weight Weight: 41.5 kg Body Mass Index (BMI) 14.8 ABG / Lab / Microbiology Data Result Diagrams: 03/19/22 04:52 03/19/22 04:52 Radiography Diagnostic Testing: Radiology Impression Echocardiogram 03/18/22 22:53 Interpretation Summary Left ventricular systolic function is normal. The estimated ejection fraction is 65 %. Sigmoid septum. Mid cavitary false tendon noted. Prominent eustachian valve. There is mild mitral annular calcification. Extension of the mitral annular calcification onto the base of the posterior mitral valve leaflet. Mild focal mitral valve calcification of the anterior leaflet. The mitral valve chordae are thickened and/or calcified. Trivial mitral valve insufficiency. Trivial tricuspid valve insufficiency. Moderate focal aortic valve calcification. Aortic sclerosis, no stenosis. Trivial pulmonic valve insufficiency. Right ventricular systolic pressure estimated to be 20 mmHg. No evidence for diastolic dysfunction. Bubble contrast study negative for right to left interatrial shunt. 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 Small acute infarct in the left thalamic lobe 2. Small acute infarct in the left cerebellar lobe Electronically Signed: Josiah Mosqueda MD at 10:29 EDT Reading Location ID and State: [id number] [facility] , Service support , ADDENDUM: 03/19/22 1056 IMPRESSION: 2 small DEOILING MACHINE OPERATOR territorial left acute infarcts 1. Small acute infarct in the left thalamic lobe 2. Small acute infarct in the left cerebellar lobe N.B. : The above Results were Read Back by Josiah Mosqueda MD to Brigida Buck OT, and understanding confirmed on 03/19/2022 10:49:14 (ET). Electronically Signed: Josiah Mosqueda MD at 10:29 EDT , D/C Instructions Discharge Diet: Low fat / Low cholesterol and 2000 mg Sodium Diet Meaningful Use Info Meaningful Use Diagnoses (Choose all that apply): Ischemic CVA CVA Therapy Assessed for PT,OT and/or ST?: Yes Ischemic Stroke Antithrombotic order at d/c?: Yes Dx of Atrial fib/flutter?: No Anticoagulant at discharge?: No Reason anticoagulant not ordered: Treatment not Indicated Statins at discharge?: Yes Primary Dx Acute Ischemic CVA?: Yes IV tPA ordered during stay?: No Reason IV t-PA not ordered: Treatment not Indicated Discharge Plan Admission Admit Date/Time: 03/19/22 12:05 Primary Reason for Your Visit: Acute CVA Attending Provider: Willow Richardson Primary Care Provider: Reggie Linton Consulting Providers: Kamlesh Diggs Instructions Additional Instructions / Restrictions: Take note of your new medications. Follow-up with neurology in the outpatient within 1 month Discharge Orders/Prescriptions Prescriptions: New atorvastatin 40 mg Tablet 40 mg PO QHS 30 Days Qty: 30 0RF aspirin 81 mg Tablet,Chewable 81 mg PO BREAKFAST 30 Days Qty: 30 0RF Continued sertraline [Zoloft] 50 MG tablet 25 mg PO DAILY Other Ambulatory Orders: 30 Day Event Recorder Preventi (Urgent) Location: None Selected Ordered By: Dr. Willow Richardson Referrals / Follow Up: Reggie Linton MD [Primary Care Provider] - Within 1 Week Tyron Marquis MD [Non-Staff] - Within 1 Month Disposition Disposition (needs filled in before D/C Order can be placed): Home Health Service Charges/Coding Visit Charges Inpatient E&M: 11709 Disch Hosp
--- NOTE | 2022-03-20 09:08 | CASEMGMT ---
Addendum entered by Lauryn Mahajan 03/20/22 10:20: Call from Keke at [facility] and she states they can accept pt with SOC 03/21/22. Pt updated and states no further questions/concerns/needs. [place] CM Addendum entered by Lauryn Mahajan 03/20/22 10:08: This RN CM back to room and pt states would like [facility]. Referral to Keke at [facility]. CM to follow. [place] CM Original Note: This RN CM to room to discuss d/c plan with pt. Pt is interested in [facility] for SN and therapy. Pt provided with list of [facility] providers including quality and resource use data and consistent with the pt's preferred geographic region, medical needs, and insurance network. CM to follow. [place] CM
[2022-03-20 09:30] VITALS: BP 157/83; PULSE 63; RESP 20; TEMP 36.1; O2SAT 96
--- NOTE | 2022-03-20 09:35 | CASEMGMT ---
Social Work Phone call placed to pt dgt Crissy and address obtained for advance directives. SW met with pt and assisted pt in completing living will and health care POA naming her daughters 1. Jenni Toth 2. Crissy Egan. Copy placed in pt chart and originals given to pt with recommendation to give copy to HCPOA and to PCP. KIMI Mason
--- NOTE | 2022-03-20 09:51 | PHA.DC.MC ---
Pharmacy Service has performed discharge medication reconciliation and counseling for this patient. 1. ASPIRIN 81MG PO DAILYCM 2. ATORVASTATIN 40MG PO QHS The patient's discharge medication list was reviewed for discrepancies and discrepancies were resolved. Home Medications sertraline 50 mg tablet (Zoloft) 25 mg PO DAILY 11/09/16 aspirin 81 mg chewable tablet 81 mg PO BREAKFAST 30 days #30 tabs 03/20/22 atorvastatin 40 mg tablet 40 mg PO QHS 30 days #30 tabs 03/20/22 The patient was counseled on the following discharge medications and changes in medications for homegoing were reviewed. The Reason for Use, instructions for use, and potential side effects were reviewed for all new medications. The patient's questions regarding all of their medications were answered. The patient was able to verbally demonstrate an understanding of their discharge medications. Patient counseled by pharmacy benefits coordinatorLew.
== END 2022-03-20 15:15 | disposition home health service (06) | DRG 64 ==
LOC: ED 22:11 → PCU 22:23
PROVIDERS: Admitting Provider Hospitalist; Emergency Provider Emergency Medicine; PCP Orthopaedic Surgery; Visit Provider Internal Medicine
DX: I63.50 Cerebral infarction due to unspecified occlusion or stenosis of unspecified cerebral artery (principal); E43 Unspecified severe protein-calorie malnutrition; G83.21 Monoplegia of upper limb affecting right dominant side; Z68.1 Body mass index [BMI] 19.9 or less, adult; E78.00 Pure hypercholesterolemia, unspecified; F41.9 Anxiety disorder, unspecified; I10 Essential (primary) hypertension; F32.A Depression, unspecified; Z79.82 Long term (current) use of aspirin; Z79.899 Other long term (current) drug therapy; Z87.891 Personal history of nicotine dependence
CPT/HCPCS: 36415; 70496; 70498; 70551; 80048; 80061; 83036; 85025; 93005; 93306; 94762; 96372; 96374; 97161; 97165; 97802; 99221; 99285; Q9967; A4216; G0378

== ENCOUNTER 2022-06-30 09:17 | Observation (INO) | payer MEDICARE, SELFPAY ==
[2022-06-30] VITALS (9 sets, daily range): BP systolic 117–166; BP diastolic 59–83; PULSE 63–84; RESP 12–21; TEMP 36.6–37; O2SAT 95–98; BMI 16.7; BMI 16.6
--- NOTE | 2022-06-30 10:03 | EKG12_ITS ---
Test Reason : NUMBNESS/TINGLING Blood Pressure : / mmHG Vent. Rate : 066 BPM Atrial Rate : 066 BPM P-R Int : 162 ms QRS Dur : 084 ms QT Int : 406 ms P-R-T Axes : 061 046 052 degrees QTc Int : 425 ms Normal sinus rhythm Normal ECG Confirmed by HATTIE JUAN, NIKKI ([id number]), makeup editor JAH GOSS ([id number]) on 07/01/2022 12:03:37 PM Referred By: Confirmed By:NIKKI KUHN MD
--- NOTE | 2022-06-30 10:03 | CT_ITS ---
STUDY: CT BRAIN WITHOUT CONTRAST REASON FOR EXAM: Female, 81 years old. Stroke, tingling in the right arm RADIATION DOSAGE (If Supplied By Facility): CTDIvol = ( 44.99 ) mGy, DLP = ( 745.49 ) mGycm TECHNIQUE: Transaxial CT imaging of the brain was performed without administration of intravenous contrast material. Individualized dose optimization techniques were used for this CT. COMPARISON: MRI March 19, 2022 FINDINGS: Normal soft tissue structures. Normal calvarium. Temporomandibular arthrosis. There is mild cerebral atrophy with widening of the extra-axial spaces and ventricular dilatation. There are areas of decreased attenuation within the white matter tracts of the supratentorial brain, consistent with microvascular disease changes. There is a lacunar infarct of the left basal ganglia. Normal brainstem. Normal cerebellum. There is no intracranial hemorrhage. There are no findings of an acute ischemic infarction. Normal visualized paranasal sinuses. CT/Brain/Head without Contrast IMPRESSION: Chronic involutional changes of the brain. Electronically Signed: Patrick Loco MD at 10:52 EST ,
--- NOTE | 2022-06-30 10:20 | RAD_ITS ---
STUDY: X-RAY CHEST REASON FOR EXAM: Female, 81 years old. Stroke. TECHNIQUE: Single frontal view of the chest. COMPARISON: None. FINDINGS: Mild hyperinflation with diffuse interstitial pattern. Pleural calcification. Bilateral apical pleural thickening. Cardiomegaly with marked aortic tortuosity and calcification. Normal mediastinum and lacey. Normal visualized pulmonary arteries. Normal visualized thoracic spine. Normal visualized ribs, clavicles, and shoulders. There is no demonstrated abnormality of the visualized soft tissue structures of the upper abdomen. RAD/Chest 1 View (Portable) IMPRESSION: Cardiomegaly with hyperinflation, bilateral apical pleural thickening and pleural calcification. No active or acute cardiopulmonary disease. Electronically Signed: Godwin Resendiz, at 10:52 EST ,
[2022-06-30 10:21] LABS: Absolute Lymphocyte Count 0.88 X10^3/uL (0.83-4.51); Absolute Neutrophil Count 4.7 X10^3/uL (2.0-7.7); Basophil# 0.08 X10^3/uL; Basophil% 1.2 % (0-1); Eosinophil# 0.51 X10^3/uL; Eosinophils% 7.6 % (0-5); Hematocrit 32.9 % (37-47); Hemoglobin 10.6 g/dL (12.0-15.0); Lymphocyte # 0.88 X10^3/ul (0.83-4.51); Lymphocyte % 13.1 % (19-41); Mean Corp Hgb Conc 32.2 g/dL (32-36); Mean Corpuscular Hgb 30.8 pg (27.0-32.0); Mean Corpuscular Volume 95.6 fL (81-99); Mean Platelet Vol. 9.6 fl (6.2-12.0); Monocyte# 0.52 X10^3/uL; Monocyte% 7.7 % (0-10); NRBC Flagged by Analyzer 0 % (0-5); Neutrophil % 70.1 % (47-70); Platelet Count 274 K/mm3 (150-450); RBC Distribution Width CV 13.8 % (11.6-14.6); RBC Distribution Width SD 48.1 fl (35.1-43.9); Red Blood Count 3.44 M/mm3 (4.2-5.4); White Blood Count 6.7 K/mm3 (4.4-11.0)
[2022-06-30 10:32] LABS: ALB/GLOB Ratio 0.6 RATIO (0.9-2.4); AST(SGOT) 25 U/L (15-37); Alanine Aminotransfer ALT/SGPT 25 U/L (13-56); Albumin, Serum 2.9 g/dL (3.2-5.0); Alkaline Phosphatase 143 U/L (45-117); Anion Gap 5 (5-15); BUN 18 mg/dL (7-18); BUN/Creat Ratio 23.3 RATIO (10-20); Calcium,Total 8.8 mg/dL (8.5-10.1); Chloride 109 mmol/L (98-107); Creatinine, Serum 0.77 mg/dL (0.55-1.02); EST Glomerular Filtration Rate 76 mL/min (>60); Est Glom Filt Rate - Afr Amer 91 mL/min (>60); Estimated Creatinine Clearance 28.87 ml/min; Globulin 4.9 g/dL (2.2-4.2); Glucose 88 mg/dL (74-106); Potassium 3.9 mmol/L (3.5-5.1); Protein, Total 7.8 g/dL (6.4-8.2); Sodium Level 140 mmol/L (136-145)
[2022-06-30 10:34] LABS: International Normalized Ratio 1.2; Prothrombin Time (Protime)PT. 14.8 SECONDS (11.7-14.9)
[2022-06-30 10:35] LABS: Partial Thromboplast Time 31.1 Seconds (24.1-36.2)
--- NOTE | 2022-06-30 10:37 | EDS_ITS ---
HPI History of Present Illness Chief Complaint: Numb/Ting Informant: patient Narrative Narrative: 81-year-old female awoke today with a chief complaint of tingling from her right elbow inferiorly to her fingers. She denies any muscle strength loss. She denies any more proximal symptoms. She states that these are the exact symptoms that she had in March when she was diagnosed with a stroke. She denies any speech vision leg symptoms. No chest pain or shortness of breath. She takes aspirin and atorvastatin as well as Zoloft. Family states that they are worried that she is having another stroke. [facility] Medical History Hypercholesteremia Home Medications sertraline 50 mg tablet (Zoloft) 25 mg PO DAILY 11/09/16 [History Last Taken Unknown] aspirin 81 mg chewable tablet 81 mg PO BREAKFAST 30 days #30 tabs 03/20/22 [Rx Last Taken Unknown] atorvastatin 40 mg tablet 40 mg PO QHS 30 days #30 tabs 03/20/22 [Rx Last Taken Unknown] Allergy/AdvReac Type Severity Reaction Status Date / Time No Known Allergies Allergy Verified 06/30/22 09:17 Family History Other COPD (chronic obstructive pulmonary disease) Surgical History H/O tubal ligation Social History Smoking Status: Former smoker ROS ROS ED Constitutional Constitutional ED: Denies chills or weight loss Eyes Eyes: Denies change in vision or diplopia ENT ENT ED: Denies ear pain, rhinorrhea or sore throat Cardiovascular Cardiovascular: Denies chest pain, orthopnea, palpitations or racing heartbeat Respiratory/Chest Respiratory/Chest: Denies cough, dyspnea or orthopnea Gastrointestinal Gastrointestinal: Denies abdominal pain, diarrhea, nausea or vomiting Genitourinary Genitourinary ED: Denies dysuria, hematuria or urinary frequency Musculoskeletal Musculoskeletal: Denies arthralgias or myalgias Integumentary Denies abscess or rash Neurologic Neurologic: Reports paresthesias; Denies headache(s) or weakness Psychiatric Psychiatric: Denies anxiety, depression, suicidal ideation or suicidal thoughts Endocrine Endocrinology: Denies polydipsia, polyphagia or polyuria Allergic/Immunologic Allergic/Immunologic ED: Denies mouth swelling, tongue swelling or urticaria EXAM Physical Exam Const Vital Signs: 06/30/22 09:18 Temperature 97.9 F Temperature Source Temporal Pulse Rate 84 Respiratory Rate 17 Blood Pressure 124/83 H Blood Pressure Mean 96 Pulse Ox 97 Oxygen Delivery Method Room Air Positive well nourished and well developed General Appearance ED: well developed HEENT Reports normocephalic, head/scalp atraumatic and moist mucous membranes Eyes PERRL and EOMs intact bilaterally Neck no lymphadenopathy, supple and no JVD Resp normal respiratory effort and clear to auscultation bilaterally Cardio regular rate, regular rhythm and no murmurs GI normal to inspection, nondistended, normoactive bowel sounds and non-tender Palpation: soft Back/Spine no CVA tenderness and normal ROM Extremity normal to inspection General Extremety ED: Negative for edema General Extremity: Negative for edema Neuro oriented x3 and CN's II-XII intact bilaterally Sensorium / Orientation: alert Motor Exam: strength 5/5 throughout Psych mental status grossly normal Mood & Affect: Negative for depressed or tearful Skin no rashes or lesions noted and no wounds MDM MDM MDM Narrative Medical decision making narrative: Basic blood work was obtained demonstrates a white count of 6.7 hemoglobin 10.6 platelet count of 274. CMP showed a glucose of [address] of the brain was obtained and was negative. My interpretation of the chest x-ray is no acute process. I did review the patient's prior admission for her stroke. At that time she did have 2 small embolic strokes. Part of her symptoms was numbness/tingling from the elbow distally. The patient denies any leg or other symptoms. There is no weakness. I will speak with the hospitalist regarding observational stay for MRI. Lab Data Attestation: I reviewed the patient's lab results. Labs: Laboratory Results - last 24 hr 06/30/22 06/30/22 06/30/22 10:06 10:06 10:06 WBC 6.7 RBC 3.44 L Hgb 10.6 L Hct 32.9 L MCV 95.6 MCH 30.8 MCHC 32.2 RDW Std Deviation 48.1 H RDW Coeff of [place] 13.8 Plt Count 274 MPV 9.6 Immature Gran % (Auto) 0.300 Neut % (Auto) 70.1 H Lymph % (Auto) 13.1 L [place] % (Auto) 7.7 Eos % (Auto) 7.6 H Baso % (Auto) 1.2 H Absolute Neuts (auto) 4.7 Absolute Lymphs (auto) 0.88 Nucleated RBC % 0 PT 14.8 INR 1.2 APTT 31.1 Sodium 140 Potassium 3.9 Chloride 109 H Carbon Dioxide 26.0 Anion Gap 5 BUN 18 Creatinine 0.77 Estim Creat Clear Calc 28.87 Est GFR (MDRD) Af Amer 91 Est GFR (MDRD) Non-Af 76 BUN/Creatinine Ratio 23.3 H Glucose 88 Calcium 8.8 Total Bilirubin 0.30 AST 25 ALT 25 Alkaline Phosphatase 143 H Total Protein 7.8 Albumin 2.9 L Globulin 4.9 H Albumin/Globulin Ratio 0.6 L Radiography Diagnostic Testing: Clinical Impression(s) from Imaging Studies Brain CT 06/30/22 10:03 IMPRESSION: Chronic involutional changes of the brain. Electronically Signed: Patrick Loco MD at 10:52 EST , Chest X-Ray 06/30/22 10:20 IMPRESSION: Cardiomegaly with hyperinflation, bilateral apical pleural thickening and pleural calcification. No active or acute cardiopulmonary disease. Electronically Signed: Godwin Resendiz at 10:52 EST , EKG Initial EKG: Attestation: I personally reviewed and interpreted this EKG as follows: Comments: Normal sinus rhythm with a ventricular rate of 66 bpm Discharge Plan Triage Chief Complaint: Numb/Ting ED Provider: Bert Vázquez Dx/Rx/DC Orders Prescriptions: No Action sertraline [Zoloft] 50 MG tablet 25 mg PO DAILY atorvastatin 40 mg Tablet 40 mg PO QHS 30 Days Qty: 30 0RF aspirin 81 mg Tablet,Chewable 81 mg PO BREAKFAST 30 Days Qty: 30 0RF Primary Care Provider: Reggie Linton Referrals: Reggie Linton MD [Primary Care Provider] - NIHSS NIHSS 1a. Level of Consciousness: Alert; keenly responsive 1b. LOC Questions: Answers BOTH questions correctly. 1c. LOC Commands: Performs both tasks correctly. 3. Visual: No visual loss 4. Facial Palsy: Normal symmetrical movements 5a. Left Arm: No drift; arm holds 90 (or 45) degrees for full 10 seconds 5b. Right Arm: No drift; arm holds 90 (or 45) degrees for full 10 seconds 6a. Left Leg: No drift; leg holds 30-degree position for full 5 seconds 6b. Right Leg: No drift; leg holds 30-degree position for full 5 seconds 7. Limb Ataxia: Absent 8. Sensory: Normal; no sensory loss 9. Best Language: No aphasia; normal 10. Dysarthria: Normal 11. Extinction and Inattention: No abnormality Total: 0
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
[2022-06-30 13:22] LABS: Troponin-I HS 7 pg/mL (3.0-54.0)
[2022-06-30] MEDS: Atorvastatin Calcium 40 MG Tablet PO (21:48)
[2022-07-01] VITALS (7 sets, daily range): BP systolic 93–161; BP diastolic 59–80; PULSE 58–71; RESP 16–17; TEMP 36.6–36.8; O2SAT 93–96; BMI 16.6
[2022-07-01 06:11] LABS: Cholesterol 130 mg/dL (200); High Density Lipoprotein 34 mg/dL; Triglycerides 96 mg/dL; Very Low Density Lipoprotein 19 mg/dL (5-40)
--- NOTE | 2022-07-01 06:42 | MRI_ITS ---
STUDY: MRA OF THE HEAD WITHOUT CONTRAST REASON FOR EXAM: Female, 81 years old. Right arm weakness TECHNIQUE: 3-D [id number]-vi-[id number] (TOF) imaging was performed with MIPs. The study was performed unenhanced. COMPARISON: None. FINDINGS: Normal bilateral petrous carotid arteries. Normal right cavernous carotid artery with a normal supraclinoid bifurcation. Normal left cavernous carotid artery with a normal supraclinoid bifurcation. Normal right A1 segment of the anterior cerebral artery. Normal left A1 segment of the anterior cerebral artery. Normal intact anterior communicating artery (ACOM). Normal bilateral A2 segments of the anterior cerebral arteries. Normal right M1 and M2 segments of the middle cerebral arteries, with a normal M1 bifurcation. Normal left M1 and M2 segments of the middle cerebral arteries, with a normal M1 bifurcation. origin of the right [employer] off the right internal carotid artery rather than a widely patent right posterior communicating artery (PCOM). No visible left posterior communicating artery (PCOM). Normal dominant vertebral artery. Markedly hypoplastic right vertebral artery. Normal basilar artery with a normal basilar bifurcation. The visualized bilateral superior cerebellar (SCA) arteries are normal. Developmentally absent right P1 segment. Normal left P1 segment, bilateral P2 and visualized P3 segments of the posterior cerebral arteries. There is no demonstrated aneurysm of the [place]. There is no major vessel occlusion or hemodynamically significant stenosis. MRI/MRA Head ONLY without Contrast IMPRESSION: Normal MRA of the head COMMENT: Please see MRI of brain should subacute lacunar ischemic infarct in the left thalamus. Electronically Signed: Richard Jesus MD at 9:39 EST ,
--- NOTE | 2022-07-01 06:42 | MRI_ITS ---
EXAM: MR HEAD WITHOUT INTRAVENOUS CONTRAST CLINICAL INDICATION: Right arm weakness. TECHNIQUE: Multiplanar and multisequence MR images of the brain were obtained without intravenous contrast. This report was created using [employer] report generation technology. COMPARISON: MRI brain without contrast 03/19/2022. FINDINGS: BRAIN AND EXTRA-AXIAL SPACES: No diffusion restriction to suspect acute or subacute ischemic infarct. Small T2 FLAIR hyperintensity foci in the white matter of both cerebral hemispheres are chronic white matter ischemic changes and unchanged. No intra- or extra-axial hemorrhage. No intracranial mass or mass effect. Posterior fossa structures are unremarkable. Ventricles are appropriate for age. No hydrocephalus. Basal cisterns are patent. SELLA: Unremarkable. Normal sella turcica, pituitary gland, infundibular stalk, optic chiasm and hypothalamus. AUDITORY SYSTEM: Unremarkable. The internal auditory canals are patent. BONES/JOINTS: Unremarkable. No discrete lytic or blastic abnormalities. SINUSES: Unremarkable as visualized. Clear. MASTOID AIR CELLS: Unremarkable as visualized. Clear. ORBITS: Unremarkable as visualized. Both globes, extraocular muscles, optic nerves and retrobulbar fat appear unremarkable. VASCULATURE: Unremarkable as visualized. Normal flow voids in the major intracranial circulation. MRI/Brain without Contrast IMPRESSION: 1. No acute findings in the head/brain. 2. Chronic white matter ischemic changes in both cerebral hemispheres. 3. No interval change when compared to 03/19/2022. Electronically Signed: Richard Jesus MD at 9:40 EST Reading Location ID and State: [address] [place] [address] , Service support ,
--- NOTE | 2022-07-01 06:43 | MRI_ITS ---
STUDY: MRA NECK WITHOUT CONTRAST REASON FOR EXAM: Female, 81 years old. Right arm numbness TECHNIQUE: Source images were obtained, MIPs were performed. The study was performed unenhanced. COMPARISON: None. FINDINGS: RIGHT CAROTID ARTERIES: Normal right common carotid artery (CCA). Normal right carotid bulb. Normal origin of the right internal carotid (ICA) artery without a hemodynamically significant stenosis. Normal visualized cervical portion of the right internal carotid artery. Normal origin of the right external carotid artery (ECA). LEFT CAROTID ARTERIES: Normal left common carotid artery (CCA). Normal left carotid bulb. Normal origin of the left internal carotid (ICA) artery without a hemodynamically significant stenosis. Normal visualized cervical portion of the left internal carotid artery. Normal origin of the left external carotid artery (ECA). VERTEBRAL ARTERIES: Normal antegrade flow within the dominant left vertebral artery without a hemodynamically significant stenosis. Markedly hypoplastic right vertebral artery. MRI/MRA Neck without Contrast IMPRESSION: 1. Normal bilateral cervical carotid arteries and dominant left vertebral artery. 2. 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 Electronically Signed: Richard Jesus MD at 9:35 EST Reading Location ID and State: [id number] [facility] , Service support ,
[2022-07-01] MEDS: Sertraline 50 MG Tablet 25 MG PO (10:00)
[2022-07-01] MEDS: Aspirin 81 MG TAB.CHEW PO (10:00)
--- NOTE | 2022-07-01 13:45 | CASEMGMT ---
RN NOE NOTE: Intro role of CM to patient and ROY form explained re: Observation status for treatment of right arm numbness. Explained hospitalization will be paid per her insurance policy for Outpatient billing and condition will continue to be evaluated for Inpt necessity. Also let pt know that [facility] sends paper in the billing packet with their phone number if questions arise. Discussed Pharmacy section of ROY form and self administered medication guideline. Pt verbalizes understanding and does not have further questions. Form signed, copy made and placed in chart, and original given to pt. Sky BACON RN CM
--- NOTE | 2022-07-01 15:25 | CASEMGMT ---
Pt states no concerns with going home at time of discharge and per nursing, has been up independent in room. [place] CM
--- NOTE | 2022-07-01 16:43 | DCINST_ITS ---
Discharge Instructions Diet Discharge Diet: No restrictions Activity Discharge Activity: Return to Normal Activity Weight Bearing Status: - (Use wheeled walker when ambulating) Follow Up Care Test Results: Test results from this visit will be discussed in further detail at your follow- up appointment, if applicable. Discharge Plan Admission Admit Date/Time: 06/30/22 12:46 Primary Reason for Your Visit: right arm parathesias, old left thalamus stroke Attending Provider: Casey Leone Primary Care Provider: Reggie Linton Consulting Providers: Nghia Pleitez Instructions Additional Instructions / Restrictions: Increase your atorvastatin to 80 mg daily Discharge Orders/Prescriptions Prescriptions: New atorvastatin 40 mg Tablet 80 mg PO QHS Qty: 60 0RF aspirin 81 mg Tablet,Chewable 81 mg PO BREAKFAST Qty: 1 0RF Continued sertraline [Zoloft] 50 MG tablet 25 mg PO DAILY aspirin 81 mg Tablet,Chewable 81 mg PO BREAKFAST 30 Days Qty: 30 0RF Discontinued atorvastatin 40 mg Tablet 40 mg PO QHS 30 Days Qty: 30 0RF Referrals / Follow Up: Reggie Linton MD [Primary Care Provider] - Within 2 Weeks Disposition Disposition (needs filled in before D/C Order can be placed): Home, Self Care
--- NOTE | 2022-07-01 16:48 | PCM.DC.SUM ---
Providers Date of Admission: 06/30/22 Date of Discharge: 07/01/22 Primary Care Physician: Dr. Reggie Linton MD Reason For Visit: RIGHT ARM NUMBNESS Diagnosis Discharge Diagnosis (1) Paresthesia of right arm: Status: Acute Code(s): R20.2 - Paresthesia of skin Plan 1. Right arm paresthesias #2 history of cerebrovascular disease Medications at Discharge Home Medications sertraline 50 mg tablet (Zoloft) 25 mg PO DAILY health 11/09/16 aspirin 81 mg chewable tablet 81 mg PO BREAKFAST 30 days #30 tabs 03/20/22 aspirin 81 mg chewable tablet 81 mg PO BREAKFAST #1 TAB 07/01/22 atorvastatin 40 mg tablet 80 mg PO QHS #60 tabs 07/01/22 Hospital Course Operations None Procedures None Summary of Care Provided Minutes Spent on Discharge: 30 Hospital Course: This 81-year-old white female was seen in the emergency room at [facility] with a chief complaint of tingling from her right elbow inferior to her fingers. Patient denied any loss of muscle strength. Work-up in the emergency room included a CT of the brain which was negative for any acute process, white blood cell count was normal, hemoglobin was 10.6. Patient was placed in observation status on PCU, she was seen by PT and OT, and she underwent an MRI of her brain, MRA of her head, and MRA of her neck. No evidence of an acute stroke was noted. On 07/01/2022, patient was seen and examined: On examination she appeared in good health and spirits, she does not appear to be in any distress. Vital signs as documented. Skin warm and dry and without overt rashes. Neck without JVD, thyroid appears normal, trachea is midline, neck is supple. Lungs clear, normal air movement was noted. Heart exam notable for regular rhythm, normal sounds and absence of murmurs, rubs or gallops. Abdomen unremarkable and without evidence of organomegaly, masses, or abdominal aortic enlargement, bowel sounds are present in all 4 quadrants, no abdominal tenderness was noted. Extremities nonedematous, no cyanosis was noted, no clubbing was noted. Neuro: Cranial nerves II through XII are grossly intact, no focal motor deficits were noted, sensation to light touch and pinprick is intact, motor exam 5/5 throughout. Psych: Patient is alert and oriented x3, she does not appear anxious or depressed, she does not appear agitated. On 07/01/2022 patient was discharged home in stable condition. Weight / BMI Weight Weight: 42.5 kg Body Mass Index (BMI) 16.6 ABG / Lab / Microbiology Data Result Diagrams: 06/30/22 10:06 06/30/22 10:06 Laboratory: Laboratory Results - last 24 hr 07/01/22 04:55: Triglycerides 96, Cholesterol 130, LDL Cholesterol 77, VLDL Cholesterol 19, HDL Cholesterol 34 L Radiography Diagnostic Testing: Radiology Impression Brain MRI 07/01/22 06:42 IMPRESSION: 1. No acute findings in the head/brain. 2. Chronic white matter ischemic changes in both cerebral hemispheres. 3. No interval change when compared to 03/19/2022. Electronically Signed: Richard Jesus MD at 9:40 EST Reading Location ID and State: [facility] / [place] , Service support , ADDENDUM: 07/01/22 1237 IMPRESSION: undefined ADDENDUM: 07/01/22 1239 IMPRESSION: undefined Head MRA 07/01/22 06:42 IMPRESSION: Normal MRA of the head COMMENT: Please see MRI of brain should subacute lacunar ischemic infarct in the left thalamus. Electronically Signed: Richard Jesus MD at 9:39 EST , ADDENDUM: 07/01/22 1239 IMPRESSION: undefined Neck MRA 07/01/22 06:43 IMPRESSION: 1. Normal bilateral cervical carotid arteries and dominant left vertebral artery. 2. 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 Electronically Signed: Richard Jesus MD at 9:35 EST , D/C Instructions Discharge Diet: No restrictions Weight Bearing Status: - (Use wheeled walker when ambulating) Meaningful Use Info Meaningful Use Diagnoses (Choose all that apply): None applicable Discharge Plan Admission Admit Date/Time: 06/30/22 12:46 Primary Reason for Your Visit: right arm parathesias, old left thalamus stroke Attending Provider: Casey Leone Primary Care Provider: Reggie Linton Consulting Providers: Nghia Pleitez Instructions Additional Instructions / Restrictions: Increase your atorvastatin to 80 mg daily Discharge Orders/Prescriptions Prescriptions: New atorvastatin 40 mg Tablet 80 mg PO QHS Qty: 60 0RF aspirin 81 mg Tablet,Chewable 81 mg PO BREAKFAST Qty: 1 0RF Continued sertraline [Zoloft] 50 MG tablet 25 mg PO DAILY aspirin 81 mg Tablet,Chewable 81 mg PO BREAKFAST 30 Days Qty: 30 0RF Discontinued atorvastatin 40 mg Tablet 40 mg PO QHS 30 Days Qty: 30 0RF Referrals / Follow Up: Reggie Linton MD [Primary Care Provider] - Within 2 Weeks Disposition Disposition (needs filled in before D/C Order can be placed): Home, Self Care Charges/Coding Visit Charges OBSV E&M: 63435 Observation care discharge
== END 2022-07-01 16:48 | disposition home or self-care (01) ==
LOC: ED 12:23 → PCU 12:46
PROVIDERS: Emergency Provider Emergency Medicine; PCP Orthopaedic Surgery; Visit Provider Internal Medicine
DX: R20.2 Paresthesia of skin (principal); Z87.891 Personal history of nicotine dependence; E78.00 Pure hypercholesterolemia, unspecified; Z79.899 Other long term (current) drug therapy; Z79.82 Long term (current) use of aspirin; R29.700 NIHSS score 0; Z86.73 Personal history of transient ischemic attack (TIA), and cerebral infarction without residual deficits
CPT/HCPCS: 36415; 70450; 70544; 70547; 70551; 71045; 80053; 80061; 84484; 85025; 85610; 85730; 93005; 97162; 97166; 99218; 99284; A4216; G0378

== ENCOUNTER 2023-08-09 13:36 | Emergency (ER) | payer MEDICARE, SELFPAY ==
[2023-08-09 13:39] VITALS: BP 80/56; PULSE 69; RESP 16; TEMP 36.4; O2SAT 97
[2023-08-09 13:53] VITALS: BMI 16.7
--- NOTE | 2023-08-09 14:01 | CT_ITS ---
STUDY: CT ABDOMEN AND PELVIS WITH CONTRAST REASON FOR EXAM: Female, 82 years old. Trauma RADIATION DOSAGE (If Supplied By Facility): CTDIvol = ( 16.77 ) mGy, DLP = ( 405.84 ) mGycm TECHNIQUE: IV 100mL Isovue-300 was administered. Transaxial images were obtained from the dome of the diaphragm to the symphysis pubis. Multiplanar coronal and sagittal images were reformatted. Individualized Dose Optimization Techniques Were Used For This CT. COMPARISON: No relevant prior comparison study available FINDINGS: Emphysematous and chronic changes in the right lower lung. The visualized portions of the heart are within normal limits. Symmetrically or prominent Liz''s lobe of the liver. No focal lesion is seen. Normal gallbladder and extrahepatic biliary system. Normal spleen. The pancreas appears to be atrophic. Normal bilateral adrenal glands. Distended stomach. No evidence of small bowel obstruction. No evidence of acute diverticulitis. The appendix is not definitely identified. Suboptimal evaluation of the bowel loops due to artifacts. There is diffuse atherosclerotic calcification of the abdominal aorta, without a demonstrated aneurysm. No retroperitoneal adenopathy. Small simple cysts in the lower pole of the left kidney for which no further follow-up exam is needed. No evidence of hydronephrosis. Normal urinary bladder. Possible uterine fibroid. Normal abdominal wall. No evidence of acute fracture. CT/Abdomen/Pelvis W IV Cont ONLY IMPRESSION: 1. No evidence of solid organ injury, free air or free fluid. 2. No focal acute inflammatory process. Electronically Signed: Anselmo Griffin MD at 15:33 EST ,
--- NOTE | 2023-08-09 14:01 | CT_ITS ---
INDICATION: trauma EXAMINATION: CT BRAIN - CT Head or Brain W/O Contrast Injection TECHNIQUE: Multiple axial images were obtained of the head without intravenous contrast. A radiation dose optimization technique was used for this scan. IV Contrast dosage and agent: None. RADIATION DOSAGE (If Supplied By Facility): CTDIvol = ( 44.99 ) mGy, DLP = ( 779.24 ) mGycm COMPARISON: No relevant prior comparison study available FINDINGS: BRAIN PARENCHYMA: No intra- or extra-axial hemorrhage. No evidence of acute infarct. 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 No intracranial mass or mass effect. There is preservation of the blackwell/white matter interface. Posterior fossa structures are unremarkable. CSF SPACES: Appropriate for age. No hydrocephalus. Basal cisterns are patent. CALVARIUM, SKULL BASE, PARANASAL SINUSES AND MASTOID AIR CELLS: Clear. No discrete lytic or blastic abnormalities. ORBITS: Both globes, extraocular muscles, optic nerves and retrobulbar fat appear unremarkable. CT/Brain/Head without Contrast IMPRESSION: No acute intracranial process. Electronically Signed: Anselmo Griffin MD at 15:24 EST ,
--- NOTE | 2023-08-09 14:01 | CT_ITS ---
INDICATION: trauma EXAMINATION: CT CHEST WITH CONTRAST - CT Chest W/ Contrast Injection TECHNIQUE: Helically acquired images were obtained of the chest following IV contrast. A radiation dose optimization technique was used for this scan. IV Contrast dosage and agent: 100 cc of Isovue-300 RADIATION DOSAGE (If Supplied By Facility): CTDIvol = ( 16.77 ) mGy, DLP = ( 405.84 ) mGycm COMPARISON: No relevant prior comparison study available FINDINGS: LUNGS, PLEURA AND LARGE AIRWAYS: Bilateral apical pleural fibrotic changes and cystic changes likely due to scarring worse on the right side. Severe panlobular emphysema worse in the right lower lobe. No evidence of pulmonary contusion or pleural effusions. Pleural thickening and calcifications bilaterally. No pneumothorax. THYROID: No thyroid lesions. HEART AND PERICARDIUM: Heart size is normal. No pericardial effusion. VESSELS: Thoracic aorta is not dilated. No aortic dissection. No obvious central pulmonary embolism although this study was not performed with the pulmonary embolism protocol. MEDIASTINUM AND JASKARAN: No mediastinal or hilar adenopathy. Esophagus is unremarkable. Small hiatal hernia. UPPER ABDOMEN: No acute pathology. BONES: Impacted displaced fracture of the proximal right humerus. Adjacent large soft tissue mass/hematoma involving the anterior right chest wall, right shoulder and proximal right humerus. CT/Chest WITH Contrast IMPRESSION: 1. No evidence of pulmonary contusion, pneumothorax or pleural effusions. 2. Large hematoma in the right upper chest wall and proximal humerus with soft tissue calcifications. 3. Impacted displaced fracture of the right humeral neck Electronically Signed: Anselmo Griffin MD at 15:43 EST ,
--- NOTE | 2023-08-09 14:01 | CT_ITS ---
INDICATION: trauma EXAMINATION: CT CERVICAL SPINE - CT Spine Cervical W/O Contrast Injection TECHNIQUE: Helically acquired images were obtained of the cervical spine. 2D reformatted images were reviewed. A radiation dose optimization technique was used for this scan. IV Contrast dosage and agent: None. RADIATION DOSAGE (If Supplied By Facility): CTDIvol = ( 13.18 ) mGy, DLP = ( 265.87 ) mGycm COMPARISON: No relevant prior comparison study available FINDINGS: VERTEBRAE: No fracture or traumatic subluxation. No discrete lytic or blastic abnormality. Rightward torticollis. The alignment of the vertebral bodies unremarkable. Normal craniocervical junction and cervicothoracic junction. DISCS and SPINAL CANAL: Multilevel degenerative changes of the spine. No critical stenosis. NECK SOFT TISSUES: No prevertebral soft tissue swelling. There is no cervical adenopathy. LUNG APICES: Partially visualized cystic or fibrotic changes in the right lung apex. CT/Spine Cervical without Contras IMPRESSION: No evidence of acute cervical spinal fracture or spondylolisthesis. Electronically Signed: Anselmo Griffin MD at 15:36 EST ,
--- NOTE | 2023-08-09 14:03 | ED.VIS.FALL ---
HPI HPI - Fall History of Present Illness Chief Complaint: Fall Detail of Chief Complaint: Fall Informant: patient and family Narrative Narrative: Patient presents to the emergency department after sustaining a fall down the basement steps about 12 steps or so. Patient apparently did not realize that floor door was open to the basement and she fell down the steps. Unclear if there was loss of consciousness. She is complaining of pain in her right arm. Family brought her to the emergency department for evaluation. She is not on blood thinners. She denies chest or abdomen pain. Initial blood pressure was 80/56. Family states that her blood pressure normally runs low. PFSH PFSH Allergy/AdvReac Type Severity Reaction Status Date / Time No Known Allergies Allergy Verified 08/09/23 13:38 Social History Smoking Status: Never smoker ROS ROS ED Review of Systems ROS Unobtainable: other Constitutional Constitutional ED: Reports lethargy; Denies chills, fever(s), sweats or weight loss Eyes Eyes: Denies blurry vision, change in vision or diplopia ENT ENT ED: Denies rhinorrhea or sore throat Cardiovascular Cardiovascular: Denies chest pain, orthopnea or racing heartbeat Respiratory/Chest Respiratory/Chest: Denies cough, dyspnea, dyspnea on exertion, orthopnea or sputum Gastrointestinal Gastrointestinal: Denies abdominal pain, diarrhea, nausea or vomiting Genitourinary Genitourinary ED: Denies dysuria, hematuria or urinary frequency Musculoskeletal Musculoskeletal: Reports other Details: Right arm pain ; Denies arthralgias, back pain, myalgias or neck pain Integumentary Denies abscess, Abrasions or rash Neurologic Neurologic: Reports headache(s); Denies weakness Psychiatric Psychiatric: Denies anxiety, depression or suicidal thoughts Endocrine Endocrinology: Denies polydipsia, polyphagia or polyuria Hematologic/Lymphatic Hematologic/Lymphatic: Denies easy bleeding, easy bruising or lymphadenopathy Allergic/Immunologic Allergic/Immunologic ED: Denies mouth swelling, tongue swelling or urticaria EXAM Physical Exam Const Vital Signs: 08/09/23 13:39 08/09/23 13:55 08/09/23 15:40 Temperature 97.6 F L Temperature Source Temporal Pulse Rate 69 85 Respiratory Rate 16 16 Respiratory Effort Normal Blood Pressure 80/56 L 96/66 Blood Pressure Mean 64 76 Pulse Ox 97 92 Oxygen Delivery Method Room Air Room Air 08/09/23 16:31 08/09/23 17:01 Temperature Temperature Source Pulse Rate 89 89 Respiratory Rate 16 Respiratory Effort Blood Pressure 127/64 H 117/90 H Blood Pressure Mean 85 99 Pulse Ox 91 Oxygen Delivery Method Positive well nourished and well developed General Appearance ED: well developed and NAD HEENT Reports TM's clear and moist mucous membranes normocephalic and atraumatic; Negative for trauma or tenderness Tympanic Membrane ED: Yes TM's clear Eyes PERRL and EOMs intact bilaterally General Eye ED: Negative for pale conjunctiva or scleral icterus Neck no lymphadenopathy, supple and no JVD Neck Narrative: Mild diffuse C-spine tenderness. No bony step-offs or depressions noted. General: tenderness Chest Wall inspection of chest normal and palpation of chest normal Chest: Negative for tenderness Resp normal respiratory effort and clear to auscultation bilaterally Effort and Inspection: Negative for respiratory distress or pain with movement Auscultation: Negative for rhonchi, wheezes or diminished lung sounds Cardio regular rate, regular rhythm, S1 normal heart sound, S2 normal heart sound and no murmurs Peripheral Pulses: pulses 2+ throughout GI normal to inspection, nondistended, normoactive bowel sounds, soft to palpation, non-tender, non-distended and no masses Back/Spine no CVA tenderness and no thoracic nor lumbar tenderness Extremity Extremity Narrative: Right upper arm-patient has obvious deformity to the humerus with tenderness palpation. There is a sulcus sign. Neurovascular intact distally. No broken skin noted. General Extremety ED: Negative for edema General Extremity: Negative for edema Neuro oriented x3, CN's II-XII intact bilaterally, no sensory deficits noted and gait normal Sensorium / Orientation: awake, alert, oriented to person, oriented to place and oriented to time Motor Exam: strength 5/5 throughout and strength abnormal Psych mental status grossly normal Skin no rashes or lesions noted and no wounds MDM MDM MDM Narrative Medical decision making narrative: Patient with fall down 12 steps to basement. Obvious deformity of the right arm. IV line will be established. She will be treated with fentanyl. She will be given a liter normal same fluid bolus. CT scan of the brain and C-spine as well as chest and abdomen pelvis will be obtained. X-rays of the right humerus will be obtained. CT scan of the brain without contrast was unremarkable. X-rays of the right humerus showed a proximal humerus fracture. Patient continued had significant pain was medicated with fentanyl. Evaluation of the axilla now reveals increased soft tissue swelling with some mottling of the right upper extremity and coolness noted to the hand compared to the opposite side. She has palpable pulses in the radial and ulnar arteries. I discussed case with orthopedic surgeon on-call who recommended transferring patient to trauma center for concern about expanding hematoma and possible vascular injury. Discussed case with [facility] Dr. Goode who accepted transfer of patient. CT results of C-spine as well as chest and abdomen pelvis pending. Lab workup was unremarkable. We will call ground transport for patient as [employer] is not flying due to icing concerns. Lab Data Attestation: I reviewed the patient's lab results. Labs: Laboratory Results - last 24 hr 08/09/23 14:00 WBC 9.4 RBC 3.99 L Hgb 12.2 Hct 37.8 MCV 94.7 MCH 30.6 MCHC 32.3 RDW Std Deviation 44.2 H RDW Coeff of [place] 12.7 Plt Count 402 MPV 9.6 Immature Gran % (Auto) 1.400 H Neut % (Auto) 63.4 Lymph % (Auto) 25.3 [place] % (Auto) 6.9 Eos % (Auto) 1.9 Baso % (Auto) 1.1 H Absolute Neuts (auto) 6.0 Absolute Lymphs (auto) 2.39 Nucleated RBC % 0 Sodium 140 Potassium 3.8 Chloride 108 H Carbon Dioxide 25.0 Anion Gap 7 BUN 16 Creatinine 1.08 H Estim Creat Clear Calc 27.91 Est GFR (MDRD) Af Amer 62 Est GFR (MDRD) Non-Af 51 L BUN/Creatinine Ratio 14.8 Glucose 157 H Calcium 9.5 Total Bilirubin 0.40 AST 28 ALT 24 Alkaline Phosphatase 107 Total Protein 8.2 Albumin 3.3 Globulin 4.9 H Albumin/Globulin Ratio 0.7 L Radiography Diagnostic Testing: Clinical Impression(s) from Imaging Studies Abdomen/Pelvis CT 08/09/23 14:01 IMPRESSION: 1. No evidence of solid organ injury, free air or free fluid. 2. No focal acute inflammatory process. Electronically Signed: Anselmo Griffin MD at 15:33 EST , Brain CT 08/09/23 14:01 IMPRESSION: No acute intracranial process. Electronically Signed: Anselmo Griffin MD at 15:24 EST , Cervical Spine CT 08/09/23 14:01 IMPRESSION: No evidence of acute cervical spinal fracture or spondylolisthesis. Electronically Signed: Anselmo Griffin MD at 15:36 EST , Chest CT 08/09/23 14:01 IMPRESSION: 1. No evidence of pulmonary contusion, pneumothorax or pleural effusions. 2. Large hematoma in the right upper chest wall and proximal humerus with soft tissue calcifications. 3. Impacted displaced fracture of the right humeral neck Electronically Signed: Anselmo Griffin MD at 15:43 EST Reading Location ID and State: [facility] / [place] Tel , Service support , Humerus X-Ray 08/09/23 14:50 IMPRESSION: Fracture of the proximal right humerus. Electronically Signed: Anselmo Griffin MD at 15:20 EST Reading Location ID and State: [facility] / [place] Tel , Service support , Discharge Plan Triage Chief Complaint: Fall ED Provider: Nader Mccall Dx/Rx/DC Orders Clinical Impression: Acute hypotension, Fall, Closed right humeral fracture Primary Care Provider: Franklyn Mabry Referrals: Franklyn Mabry MD [Primary Care Provider] - Disposition Disposition: DC/Tx to Another Type of HCF Discharge Location: [facility] Discharge Date/Time: 08/09/23 19:30
[2023-08-09 14:07] LABS: Absolute Lymphocyte Count 2.39 X10^3/uL (0.83-4.51); Basophil% 1.1 % (0-1); Eosinophil# 0.18 X10^3/uL; Eosinophils% 1.9 % (0-5); Hematocrit 37.8 % (37-47); Hemoglobin 12.2 g/dL (12.0-15.0); Lymphocyte # 2.39 X10^3/ul (0.83-4.51); Lymphocyte % 25.3 % (19-41); Mean Corp Hgb Conc 32.3 g/dL (32-36); Mean Corpuscular Hgb 30.6 pg (27.0-32.0); Mean Corpuscular Volume 94.7 fL (81-99); Mean Platelet Vol. 9.6 fl (6.2-12.0); Monocyte# 0.65 X10^3/uL; Monocyte% 6.9 % (0-10); NRBC Flagged by Analyzer 0 % (0-5); Neutrophil # 5.99 X10^3/uL (2.7-7.7); Neutrophil % 63.4 % (47-70); Platelet Count 402 K/mm3 (150-450); RBC Distribution Width CV 12.7 % (11.6-14.6); RBC Distribution Width SD 44.2 fl (35.1-43.9); Red Blood Count 3.99 M/mm3 (4.2-5.4); White Blood Count 9.4 K/mm3 (4.4-11.0)
[2023-08-09] MEDS: 0.9% Normal Saline (1000mL) 1,000 ML 1000 ML IV (14:17)
[2023-08-09] MEDS: Ondansetron 4 MG/2 ML Vial IV (14:18)
[2023-08-09] MEDS: fentaNYL 100 MCG/2 ML Ampul 25 MCG IV ×3 (14:18→15:43)
[2023-08-09 14:23] LABS: ALB/GLOB Ratio 0.7 RATIO (0.9-2.4); AST(SGOT) 28 U/L (15-37); Alanine Aminotransfer ALT/SGPT 24 U/L (13-56); Albumin, Serum 3.3 g/dL (3.2-5.0); Alkaline Phosphatase 107 U/L (45-117); Anion Gap 7 (5-15); BUN 16 mg/dL (7-18); BUN/Creat Ratio 14.8 RATIO (10-20); Calcium,Total 9.5 mg/dL (8.5-10.1); Chloride 108 mmol/L (98-107); Creatinine, Serum 1.08 mg/dL (0.55-1.02); EST Glomerular Filtration Rate 51 mL/min (>60); Est Glom Filt Rate - Afr Amer 62 mL/min (>60); Estimated Creatinine Clearance 27.91 ml/min; Globulin 4.9 g/dL (2.2-4.2); Glucose 157 mg/dL (74-106); Potassium 3.8 mmol/L (3.5-5.1); Protein, Total 8.2 g/dL (6.4-8.2); Sodium Level 140 mmol/L (136-145)
--- NOTE | 2023-08-09 14:50 | RAD_ITS ---
INDICATION: fall EXAMINATION/TECHNIQUE: X-RAY - RIGHT XR Humerus Min 2 Views 2 VIEWS COMPARISON: No relevant prior comparison study available FINDINGS: SOFT TISSUES: Diffuse soft tissue swelling. No radiopaque foreign body. BONES/JOINTS: Transverse impacted displaced fracture of the right humeral neck. No evidence of dislocation. RAD/Humerus min 2 Views IMPRESSION: Fracture of the proximal right humerus. Electronically Signed: Anselmo Griffin MD at 15:20 EST ,
[2023-08-09 15:40] VITALS: BP 96/66; PULSE 85; RESP 16; O2SAT 92
--- NOTE | 2023-08-09 15:56 | ED.RN ---
Report called to [facility]
[2023-08-09] MEDS: 0.9% Normal Saline (1000mL) 1,000 ML 150 ML IV (16:00)
[2023-08-09] MEDS: HYDROmorphone 1 MG/ML Syringe IV (16:04)
[2023-08-09 16:31] VITALS: BP 127/64; PULSE 89
[2023-08-09 17:01] VITALS: BP 117/90; PULSE 89; RESP 16; O2SAT 91
== END 2023-08-09 19:30 | disposition other institution (70) ==
PROVIDERS: Emergency Provider Emergency Medicine; PCP Family Medicine; Visit Provider Emergency Medicine
DX: I95.9 Hypotension, unspecified (principal); S42.301A Unspecified fracture of shaft of humerus, right arm, initial encounter for closed fracture; W10.9XXA Fall (on) (from) unspecified stairs and steps, initial encounter
CPT/HCPCS: 70450; 71260; 72125; 73060; 74177; 80053; 85025; 96361; 96374; 96375; 96376; 99285; J7030; Q9967; A4216; J2405